=== PATIENT | female | born 1990 | race Caucasian/White ===

== ENCOUNTER 2016-07-23 13:21 | Emergency (ER) | payer OTHER ==
[2016-07-23] MEDS ORDERED: ONDANSETRON 4 MG ORAL DISINTEGRATING TAB (S0181) As Ordered ONE (15:10)
[2016-07-23 15:44] LABS: BASO % 0.2 % (0.0-1.0); EOS % 0.4 % (0.0-3.0); LARGE UNSTAINED CELL # 0.1 K/mm3 (0.0-0.4); LARGE UNSTAINED CELL % 1.1 % (0.0-4.0); LYMPH # 0.5 K/mm3 (1.5-6.5); LYMPH % 5.7 % (24.0-44.0); MEAN CORPUSCULAR HEMOGLOBIN 30.7 pg (27.0-33.0); MEAN CORPUSCULAR HGB CONC 33.8 g/dl (32.0-36.5); MEAN CORPUSCULAR VOLUME 90.8 fl (80.0-96.0); MONO # 0.2 K/mm3 (0.0-0.8); MONO % 2.7 % (0.0-5.0); NEUTROPHILS # 7.5 K/mm3 (1.8-7.7); NEUTROPHILS % 89.9 % (36.0-66.0); PLATELET COUNT, AUTOMATED 210 k/mm3 (150-450); RED CELL DISTRIBUTION WIDTH 12.1 % (11.5-14.5); WHITE BLOOD COUNT 8.4 K/mm3 (4.0-10.0)
--- NOTE | 2016-07-23 15:51 | REP ---
Obstetric ultrasonography, emergency room request for suspected premature interim membranes, amniotic fluid volume assessment: There is a single intrauterine gestation in a vertex presentation. The placenta is posterior. There is no placenta previa. The heart rate is 158 beats per minute. The cervix 3.0 cm length. Subjectively the amniotic fluid volume is normal. The amniotic fluid index is 11.0 (9.7 - 22.1). No additional ultrasound evaluation is requested or performed at this time. Signed by Bruno Hansen MD 07/23/2016 03:42 P
[2016-07-23 15:54] LABS: ALBUMIN 2.8 GM/DL (3.2-5.2); ALBUMIN/GLOBULIN RATIO 0.93 (1.00-1.93); ALKALINE PHOSPHATASE 57 U/L (45-117); ALT/SGPT 41 U/L (12-78); ANION GAP 8 MEQ/L (8-16); AST/SGOT 31 U/L (15-37); BILIRUBIN,TOTAL 0.6 MG/DL (0.2-1.0); BLOOD UREA NITROGEN 10 MG/DL (7-18); CARBON DIOXIDE LEVEL 27 MEQ/L (21-32); CHLORIDE LEVEL 104 MEQ/L (98-107); CREATININE FOR GFR 0.49 MG/DL (0.55-1.02); GLOMERULAR FILTRATION RATE > 60.0 (>60); GLUCOSE, FASTING 81 MG/DL (70-105); POTASSIUM SERUM 3.9 MEQ/L (3.5-5.1); SODIUM LEVEL 139 MEQ/L (136-145); TOTAL PROTEIN 5.8 GM/DL (6.4-8.2)
--- NOTE | 2016-07-23 16:32 | EDDOCDS ---
Physician Documentation [facility] Name: Beryl Haney Age: 26 yrs Sex: Female : 1990 Arrival Date: 07/23/2016 Time: 13:21 Bed I4 / M4 Private MD: Luisa Johnson NP Disposition: 07/23/16 16:00 Discharged to Home/Self Care. Impression: Nausea and vomiting, Diarrhea, unspecified. - Condition is Stable. - Discharge Instructions: Nausea and Vomiting, [id number], Diarrhea, [id number]. - Prescriptions for Reglan 10 mg Oral Tablet - take 1 tablet by ORAL route every 6 hours take 30 minutes before meals and at bedtime; 20 tablet. - Medication Reconciliation, Work Release Form - 1 day, Local Pharmacy Hours form. - Follow up: Traci Calhoun MD; When: Call to arrange an appointment; Reason: Further diagnostic work-up, Recheck today's complaints, Continuance of care. - Problem is new. - Symptoms are unchanged. Historical: - Allergies: No known drug Allergies; - Home Meds: 1. Vitamin Oral tab 1 tab nightly (Last dose: 07/22/2016) 2. levothyroxine 25 mcg Oral tab 1 tab nightly (Last dose: 07/22/2016) 3. Sertraline 50 mg nightly (Last dose: 07/22/2016) - PMHx: Hypothyroidism; Anxiety; - PSHx: none; - Social history: Smoking status: Patient states was never smoker of tobacco. No barriers to communication noted, The patient speaks fluent Israeli. - Family history: Not pertinent. - : The pt / caregiver states he / she is not on anticoagulants. Home medication list is obtained from the patient. - Exposure Risk Screening:: None identified. 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 2 in. (157.48 cm) (R); Pain 6/10; 16:04 BP 98 / 55; Pulse 96; Resp 18; Temp 98.8(TE); Pulse Ox 98% on R/A; Pain 0/10; nb2 13:23 Body Mass Index 31.09 (77.11 kg, 157.48 cm) gr2 16:04 RN notified of BP nb2 MDM: 15:08 Ondansetron ODT Oral Disintegrating Tablet 4 mg PO once ordered. btw 15:10 IV Saline Lock ordered. btw 15:10 NS 0.9% 1000 ml IV at bolus once ordered. btw 15:11 Set up pelvic ordered. btw 15:16 Heart Tones ordered. btw 15:18 Obs. Limited, GABRIEL US Ordered. EDMS 15:19 CBC with Diff Ordered. EDMS 15:19 Complete Comphrensive Metabolic Ordered. EDMS 15:55 Financial registration complete. [facility] 15:55 [facility] Payment Agreement was scanned into [employer] and attached to record. gjb 15:59 CBC with Diff Reviewed. btw 15:59 Complete Comphrensive Metabolic Reviewed. btw Administered Medications: 15:12 Drug: Ondansetron ODT 4 mg [ondansetron 4 mg disintegrating tablet (1 tabs)] Route: PO; dsf 15:25 Drug: NS 0.9% 1000 ml [sodium chloride 0.9 % intravenous solution] Route: IV; Rate: kr3 bolus; Site: right antecubital; Signatures: Dispatcher [employer] EDMS Rosa Cardozo RN RN kpj Robie, KathleenRN RN rob3 Kim BirdRN RN rs3 Hollis Shen PA PA btw Alexandra Mora Desiree RN dsf The chart was reviewed and I authenticate all verbal orders and agree with the evaluation and treatment provided.Corrections: (The following items were deleted from the chart) 15:18 15:09 US OBS SINGEL GEST+US ordered. EDMS EDMS Attachments: 15:55 [facility] Payment Agreement [facility] MTDD
--- NOTE | 2016-07-23 16:32 | EDDOCDS ---
Nurse's Notes [facility] Name: Beryl Haney Age: 26 yrs Sex: Female : 1990 Arrival Date: 07/23/2016 Time: 13:21 Bed I4 / M4 Private MD: Luisa Johnson NP Diagnosis: Nausea and vomiting;Diarrhea, unspecified Presentation: 07/23 13:39 Presenting complaint: Patient states: 6 months , nausea vomiting and diarrhea [facility] since 0200. Adult Sepsis Screening: The patient does not have new or worsening altered mentation. Patient's respiratory rate is less than 22. Systolic blood pressure is greater than 100. Patient has a qSOFA score of 0- Negative Sepsis Screen. Suicide/Homicide risk assessment- the patient denies having any suicidal and/or homicidal ideations and does not present with any other emotional, behavioral or mental health complaints. Status: Patient is not a client service executive or dependent. Transition of care: patient was not received from another setting of care. 13:39 Acuity: JUSTIN Level 3 [facility] 13:39 Method Of Arrival: Walkin/Carried/Asstd [facility] Triage Assessment: 13:41 General: Appears uncomfortable, Behavior is appropriate for age, pleasant. Pain: [facility] Location: body aches Pain currently is 5 out of 10 on a pain scale. Pt Declines HIV testing. Neurological: Level of Consciousness is awake, alert, Oriented to person, place, time. EENT: Oral mucosa is dry. Respiratory: Airway is patent Respiratory effort is even, unlabored, Respiratory pattern is regular, symmetrical. GI: Reports diarrhea, nausea, vomiting. : Denies cramping vaginal bleeding. Derm: Skin is dry, Skin is pale, pink, Skin temperature is warm. 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 Vitamin Oral tab 1 tab nightly (Last dose: 07/22/2016) 2. levothyroxine 25 mcg Oral tab 1 tab nightly (Last dose: 07/22/2016) 3. Sertraline 50 mg nightly (Last dose: 07/22/2016) - PMHx: Hypothyroidism; Anxiety; - PSHx: none; - Social history: Smoking status: Patient states was never smoker of tobacco. No barriers to communication noted, The patient speaks fluent Italian. - Family history: Not pertinent. - : The pt / caregiver states he / she is not on anticoagulants. Home medication list is obtained from the patient. - Exposure Risk Screening:: None identified. Screenin:27 Screening information is obtained from the patient. Fall risk: No risks identified. kr3 Assistance ADL's: requires no assistance with activities of daily living. Abuse/DV Screen: The patient / caregiver reports he/she is: not in a situation that causes fear, pain or injury. Nutritional screening: No deficits noted. Advance Directives: Currently, there is no health care proxy. home support is adequate. Assessment: 15:26 General: Appears in no apparent distress, comfortable, Behavior is appropriate for age, kr3 cooperative. Pain: Location: all over body Pain currently is 6 out of 10 on a pain scale. GI: Bowel sounds present X 4 quads. Abd is soft and non tender X 4 quads. Reports diarrhea, nausea, vomiting. Derm: Skin is normal. Vital Signs: 13:23 BP 108 / 65; Pulse 119; Resp 18 S; Temp 99.0(O); Pulse Ox 98% on R/A; Weight 77.11 kg gr2 (R); Height 5 ft. 2 in. (157.48 cm) (R); Pain 6/10; 16:04 BP 98 / 55; Pulse 96; Resp 18; Temp 98.8(TE); Pulse Ox 98% on R/A; Pain 0/10; nb2 13:23 Body Mass Index 31.09 (77.11 kg, 157.48 cm) gr2 16:04 RN notified of BP nb2 Vitals: 13:23 Log In Time: July 23, 2016 at 13:23. gr2 15:45 Heart Tones 186BPM. kr3 ED Course: 13:22 Patient visited by Jhonatan Arreola. gr2 13:22 Patient moved to Waiting gr2 13:23 Luisa Johnson is Private Physician. gr2 13:26 Patient visited by Jhonatan Arreola. gr2 13:26 Patient moved to Pre RCE gr2 13:40 Triage Initiated kp 14:21 Patient moved to Triage 2 dsf 14:50 Hollis Shen [facility] is [facility]. btw 14:50 Lizet Fernandez MD is Attending Physician. btw 14:50 Patient visited by Hollis Shen PA. btw 15:11 Patient moved to I4 / M4 dwg 15:25 Complete Comphrensive Metabolic Sent. kr3 15:25 CBC with Diff Sent. kr3 15:26 Inserted saline lock: 20 gauge in right antecubital area and blood collected. The kr3 patient tolerated the procedure well. 15:27 The patient / caregiver is instructed regarding the plan of care and ED course. kr3 Accompanied by Family Member, Patient has correct armband on for positive identification. Placed in gown. Bed in low position. Call light in reach. Side rails up X 1. 15:27 Warm blanket given. kr3 15:28 Patient visited by Avelina Gutierrez RN. kr3 15:28 Patient moved to Ultrasound kr3 15:35 Patient moved to I4 / M4 kr3 15:55 [facility] Payment Agreement was scanned into [employer] and attached to record. gjb 15:59 Traci Cahloun MD is Referral Physician. btw 16:04 Patient visited by Beryl Lorenzo. nb2 16:29 Discontinued lock bleeding controlled, pressure dressing applied, No redness/swelling rs3 at site. No procedures done that require assistance. Administered Medications: 15:12 Drug: Ondansetron ODT 4 mg [ondansetron 4 mg disintegrating tablet (1 tabs)] Route: PO; dsf 15:25 Drug: NS 0.9% 1000 ml [sodium chloride 0.9 % intravenous solution] Route: IV; Rate: kr3 bolus; Site: right antecubital; Order Results: Lab Order: CBC with Diff; SPEC'M 07/23/16 15:24 Test: WHITE BLOOD COUNT; Value: 8.4; Range: 4.0-10.0; Units: K/mm3; Status: F Test: RED BLOOD COUNT; Value: 4.20; Range: 4.00-5.40; Units: M/mm3; Status: F Test: HEMOGLOBIN; Value: 12.9; Range: 12.0-16.0; Units: g/dl; Status: F Test: HEMATOCRIT; Value: 38.2; Range: 36.0-47.0; Units: %; Status: F Test: MEAN CORPUSCULAR VOLUME; Value: 90.8; Range: 80.0-96.0; Units: fl; Status: F Test: MEAN CORPUSCULAR HEMOGLOBIN; Value: 30.7; Range: 27.0-33.0; Units: pg; Status: F Test: MEAN CORPUSCULAR HGB CONC; Value: 33.8; Range: 32.0-36.5; Units: g/dl; Status: F Test: RED CELL DISTRIBUTION WIDTH; Value: 12.1; Range: 11.5-14.5; Units: %; Status: F Test: PLATELET COUNT, AUTOMATED; Value: 210; Range: 150-450; Units: k/mm3; Status: F Test: NEUTROPHILS %; Value: 89.9; Range: 36.0-66.0; Abnormal: Above high normal; Units: %; Status: F Test: LYMPH %; Value: 5.7; Range: 24.0-44.0; Abnormal: Below low normal; Units: %; Status: F Test: MONO %; Value: 2.7; Range: 0.0-5.0; Units: %; Status: F Test: EOS %; Value: 0.4; Range: 0.0-3.0; Units: %; Status: F Test: BASO %; Value: 0.2; Range: 0.0-1.0; Units: %; Status: F Test: LARGE UNSTAINED CELL %; Value: 1.1; Range: 0.0-4.0; Units: %; Status: F Test: NEUTROPHILS #; Value: 7.5; Range: 1.8-7.7; Units: K/mm3; Status: F Test: LYMPH #; Value: 0.5; Range: 1.5-6.5; Abnormal: Below low normal; Units: K/mm3; Status: F Test: MONO #; Value: 0.2; Range: 0.0-0.8; Units: K/mm3; Status: F Test: EOS #; Value: 0.0; Range: 0.0-0.50; Units: K/mm3; Status: F Test: BASO #; Value: 0.0; Range: 0.0-0.2; Units: K/mm3; Status: F Test: LARGE UNSTAINED CELL #; Value: 0.1; Range: 0.0-0.4; Units: K/mm3; Status: F Lab Order: Complete Comphrensive Metabolic; SPEC'M 07/23/16 15:24 Test: GLUCOSE, FASTING; Value: 81; Range: 70-105; Units: MG/DL; Status: F Test: BLOOD UREA NITROGEN; Value: 10; Range: 7-18; Units: MG/DL; Status: F Test: CREATININE FOR GFR; Value: 0.49; Range: 0.55-1.02; Abnormal: Below low normal; Units: MG/DL; Status: F Test: GLOMERULAR FILTRATION RATE; Value: > 60.0; Range: >60; Status: F Test: SODIUM LEVEL; Value: 139; Range: 136-145; Units: MEQ/L; Status: F Test: POTASSIUM SERUM; Value: 3.9; Range: 3.5-5.1; Units: MEQ/L; Status: F Test: CHLORIDE LEVEL; Value: 104; Range: 98-107; Units: MEQ/L; Status: F Test: CARBON DIOXIDE LEVEL; Value: 27; Range: 21-32; Units: MEQ/L; Status: F Test: ANION GAP; Value: 8; Range: 8-16; Units: MEQ/L; Status: F Test: CALCIUM LEVEL; Value: 8.0; Range: 8.5-10.1; Abnormal: Below low normal; Units: MG/DL; Status: F Test: AST/SGOT; Value: 31; Range: 15-37; Units: U/L; Status: F Test: ALT/SGPT; Value: 41; Range: 12-78; Units: U/L; Status: F Test: ALKALINE PHOSPHATASE; Value: 57; Range: 45-117; Units: U/L; Status: F Test: BILIRUBIN,TOTAL; Value: 0.6; Range: 0.2-1.0; Units: MG/DL; Status: F Test: TOTAL PROTEIN; Value: 5.8; Range: 6.4-8.2; Abnormal: Below low normal; Units: GM/DL; Status: F Test: ALBUMIN; Value: 2.8; Range: 3.2-5.2; Abnormal: Below low normal; Units: GM/DL; Status: F Test: ALBUMIN/GLOBULIN RATIO; Value: 0.93; Range: 1.00-1.93; Abnormal: Below low normal; Status: F Test Note: ; Units are mL/min/1.73 m2 Chronic Kidney Disease Staging per NKF: Stage I & II GFR >=60 Normal to Mildly Decreased Stage III GFR 30-59 Moderately Decreased Stage IV GFR 15-29 Severely Decreased Stage V GFR <15 Very Little GFR Left ESRD GFR <15 on AUTOMOTIVE ELECTRICIAN HELPER Outcome: 15:45 Ultrasound Study completed. kr3 16:00 Discharge ordered by Provider. btw 16:30 Discharge Assessment: patient administered narcotics - no. The following High Risk rs3 Discharge criteria are identified: None. Discharged to Labor and Delivery. Condition: stable. Discharge instructions given to patient, Instructed on discharge instructions, follow up and referral plans. medication usage, Demonstrated understanding of instructions, medications, Pt was receptive of discharge instructions/ teaching. Prescriptions given X 1. Property :Personal belongings accompany Pt. 16:30 Patient left the ED. rs3 Signatures: Bruno Glass, RN RN dwRosa Alcazar RN RN kpj Avelina Gutierrez,RN RN kr3 Kim BirdRN RN rs3 Hollis Shen PA PA btw Fuller, Desiree,RN RN anabelf Jhonatan Arreola2 Alexanrda Mora Nicole nb2 MTDD
--- NOTE | 2016-07-25 17:32 | EDDOCDS ---
Nurse's Notes [facility] Name: Beryl Haney Age: 26 yrs Sex: Female : 1990 Arrival Date: 07/23/2016 Time: 13:21 Bed I4 / M4 Private MD: Luisa Johnson NP Diagnosis: Nausea and vomiting;Diarrhea, unspecified Presentation: 07/23 13:39 Presenting complaint: Patient states: 6 months , nausea vomiting and diarrhea [facility] since 0200. Adult Sepsis Screening: The patient does not have new or worsening altered mentation. Patient's respiratory rate is less than 22. Systolic blood pressure is greater than 100. Patient has a qSOFA score of 0- Negative Sepsis Screen. Suicide/Homicide risk assessment- the patient denies having any suicidal and/or homicidal ideations and does not present with any other emotional, behavioral or mental health complaints. Status: Patient is not a manager service desk or dependent. Transition of care: patient was not received from another setting of care. 13:39 Acuity: JUSTIN Level 3 [facility] 13:39 Method Of Arrival: Walkin/Carried/Asstd [facility] Triage Assessment: 13:41 General: Appears uncomfortable, Behavior is appropriate for age, pleasant. Pain: [facility] Location: body aches Pain currently is 5 out of 10 on a pain scale. Pt Declines HIV testing. Neurological: Level of Consciousness is awake, alert, Oriented to person, place, time. EENT: Oral mucosa is dry. Respiratory: Airway is patent Respiratory effort is even, unlabored, Respiratory pattern is regular, symmetrical. GI: Reports diarrhea, nausea, vomiting. : Denies cramping vaginal bleeding. Derm: Skin is dry, Skin is pale, pink, Skin temperature is warm. 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 Vitamin Oral tab 1 tab nightly (Last dose: 07/22/2016) 2. levothyroxine 25 mcg Oral tab 1 tab nightly (Last dose: 07/22/2016) 3. Sertraline 50 mg nightly (Last dose: 07/22/2016) - PMHx: Hypothyroidism; Anxiety; - PSHx: none; - Social history: Smoking status: Patient states was never smoker of tobacco. No barriers to communication noted, The patient speaks fluent Austrian. - Family history: Not pertinent. - : The pt / caregiver states he / she is not on anticoagulants. Home medication list is obtained from the patient. - Exposure Risk Screening:: None identified. Screenin:27 Screening information is obtained from the patient. Fall risk: No risks identified. kr3 Assistance ADL's: requires no assistance with activities of daily living. Abuse/DV Screen: The patient / caregiver reports he/she is: not in a situation that causes fear, pain or injury. Nutritional screening: No deficits noted. Advance Directives: Currently, there is no health care proxy. home support is adequate. Assessment: 15:26 General: Appears in no apparent distress, comfortable, Behavior is appropriate for age, kr3 cooperative. Pain: Location: all over body Pain currently is 6 out of 10 on a pain scale. GI: Bowel sounds present X 4 quads. Abd is soft and non tender X 4 quads. Reports diarrhea, nausea, vomiting. Derm: Skin is normal. Vital Signs: 13:23 BP 108 / 65; Pulse 119; Resp 18 S; Temp 99.0(O); Pulse Ox 98% on R/A; Weight 77.11 kg gr2 (R); Height 5 ft. 2 in. (157.48 cm) (R); Pain 6/10; 16:04 BP 98 / 55; Pulse 96; Resp 18; Temp 98.8(TE); Pulse Ox 98% on R/A; Pain 0/10; nb2 13:23 Body Mass Index 31.09 (77.11 kg, 157.48 cm) gr2 16:04 RN notified of BP nb2 Vitals: 13:23 Log In Time: July 23, 2016 at 13:23. gr2 15:45 Heart Tones 186BPM. kr3 ED Course: 13:22 Patient visited by Jhonatan Arreola. gr2 13:22 Patient moved to Waiting gr2 13:23 Luisa Johnson is Private Physician. gr2 13:26 Patient visited by Jhonatan Arreola. gr2 13:26 Patient moved to Pre RCE gr2 13:40 Triage Initiated kp 14:21 Patient moved to Triage 2 dsf 14:50 Hollis Shen PA is PHCP. btw 14:50 Lizet Fernandez MD is Attending Physician. btw 14:50 Patient visited by Hollis Shen PA. btw 15:11 Patient moved to I4 / M4 dwg 15:25 Complete Comphrensive Metabolic Sent. kr3 15:25 CBC with Diff Sent. kr3 15:26 Inserted saline lock: 20 gauge in right antecubital area and blood collected. The kr3 patient tolerated the procedure well. 15:27 The patient / caregiver is instructed regarding the plan of care and ED course. kr3 Accompanied by Family Member, Patient has correct armband on for positive identification. Placed in gown. Bed in low position. Call light in reach. Side rails up X 1. 15:27 Warm blanket given. kr3 15:28 Patient visited by Avelina Gutierrez RN. kr3 15:28 Patient moved to Ultrasound kr3 15:35 Patient moved to I4 / M4 kr3 15:55 [facility] Payment Agreement was scanned into [employer] and attached to record. gjb 15:59 Traci Calhoun MD is Referral Physician. btw 16:04 Patient visited by eBryl Lorenzo. nb2 16:29 Discontinued lock bleeding controlled, pressure dressing applied, No redness/swelling rs3 at site. No procedures done that require assistance. 16:36 Obs. Limited, GABRIEL US Returned. EDMS 07/24 09:56 T-Sheet-- Draft Copy was scanned into [employer] and attached to record. gb Administered Medications: 07/23 15:12 Drug: Ondansetron ODT 4 mg [ondansetron 4 mg disintegrating tablet (1 tabs)] Route: PO; dsf 15:25 Drug: NS 0.9% 1000 ml [sodium chloride 0.9 % intravenous solution] Route: IV; Rate: kr3 bolus; Site: right antecubital; Order Results: Lab Order: CBC with Diff; SPEC'M 07/23/16 15:24 Test: WHITE BLOOD COUNT; Value: 8.4; Range: 4.0-10.0; Units: K/mm3; Status: F Test: RED BLOOD COUNT; Value: 4.20; Range: 4.00-5.40; Units: M/mm3; Status: F Test: HEMOGLOBIN; Value: 12.9; Range: 12.0-16.0; Units: g/dl; Status: F Test: HEMATOCRIT; Value: 38.2; Range: 36.0-47.0; Units: %; Status: F Test: MEAN CORPUSCULAR VOLUME; Value: 90.8; Range: 80.0-96.0; Units: fl; Status: F Test: MEAN CORPUSCULAR HEMOGLOBIN; Value: 30.7; Range: 27.0-33.0; Units: pg; Status: F Test: MEAN CORPUSCULAR HGB CONC; Value: 33.8; Range: 32.0-36.5; Units: g/dl; Status: F Test: RED CELL DISTRIBUTION WIDTH; Value: 12.1; Range: 11.5-14.5; Units: %; Status: F Test: PLATELET COUNT, AUTOMATED; Value: 210; Range: 150-450; Units: k/mm3; Status: F Test: NEUTROPHILS %; Value: 89.9; Range: 36.0-66.0; Abnormal: Above high normal; Units: %; Status: F Test: LYMPH %; Value: 5.7; Range: 24.0-44.0; Abnormal: Below low normal; Units: %; Status: F Test: MONO %; Value: 2.7; Range: 0.0-5.0; Units: %; Status: F Test: EOS %; Value: 0.4; Range: 0.0-3.0; Units: %; Status: F Test: BASO %; Value: 0.2; Range: 0.0-1.0; Units: %; Status: F Test: LARGE UNSTAINED CELL %; Value: 1.1; Range: 0.0-4.0; Units: %; Status: F Test: NEUTROPHILS #; Value: 7.5; Range: 1.8-7.7; Units: K/mm3; Status: F Test: LYMPH #; Value: 0.5; Range: 1.5-6.5; Abnormal: Below low normal; Units: K/mm3; Status: F Test: MONO #; Value: 0.2; Range: 0.0-0.8; Units: K/mm3; Status: F Test: EOS #; Value: 0.0; Range: 0.0-0.50; Units: K/mm3; Status: F Test: BASO #; Value: 0.0; Range: 0.0-0.2; Units: K/mm3; Status: F Test: LARGE UNSTAINED CELL #; Value: 0.1; Range: 0.0-0.4; Units: K/mm3; Status: F Lab Order: Complete Comphrensive Metabolic; SPEC'M 07/23/16 15:24 Test: GLUCOSE, FASTING; Value: 81; Range: 70-105; Units: MG/DL; Status: F Test: BLOOD UREA NITROGEN; Value: 10; Range: 7-18; Units: MG/DL; Status: F Test: CREATININE FOR GFR; Value: 0.49; Range: 0.55-1.02; Abnormal: Below low normal; Units: MG/DL; Status: F Test: GLOMERULAR FILTRATION RATE; Value: > 60.0; Range: >60; Status: F Test: SODIUM LEVEL; Value: 139; Range: 136-145; Units: MEQ/L; Status: F Test: POTASSIUM SERUM; Value: 3.9; Range: 3.5-5.1; Units: MEQ/L; Status: F Test: CHLORIDE LEVEL; Value: 104; Range: 98-107; Units: MEQ/L; Status: F Test: CARBON DIOXIDE LEVEL; Value: 27; Range: 21-32; Units: MEQ/L; Status: F Test: ANION GAP; Value: 8; Range: 8-16; Units: MEQ/L; Status: F Test: CALCIUM LEVEL; Value: 8.0; Range: 8.5-10.1; Abnormal: Below low normal; Units: MG/DL; Status: F Test: AST/SGOT; Value: 31; Range: 15-37; Units: U/L; Status: F Test: ALT/SGPT; Value: 41; Range: 12-78; Units: U/L; Status: F Test: ALKALINE PHOSPHATASE; Value: 57; Range: 45-117; Units: U/L; Status: F Test: BILIRUBIN,TOTAL; Value: 0.6; Range: 0.2-1.0; Units: MG/DL; Status: F Test: TOTAL PROTEIN; Value: 5.8; Range: 6.4-8.2; Abnormal: Below low normal; Units: GM/DL; Status: F Test: ALBUMIN; Value: 2.8; Range: 3.2-5.2; Abnormal: Below low normal; Units: GM/DL; Status: F Test: ALBUMIN/GLOBULIN RATIO; Value: 0.93; Range: 1.00-1.93; Abnormal: Below low normal; Status: F Test Note: ; Units are mL/min/1.73 m2 Chronic Kidney Disease Staging per NKF: Stage I & II GFR >=60 Normal to Mildly Decreased Stage III GFR 30-59 Moderately Decreased Stage IV GFR 15-29 Severely Decreased Stage V GFR <15 Very Little GFR Left ESRD GFR <15 on SOLAR SITE ASSESSMENT SPECIALIST Radiology Order: Obs. Limited, GABRIEL US Test: Obs. Limited, GABRIEL US REASON FOR EXAMINATION: ? PPROM; Obstetric ultrasonography, emergency room request for suspected premature interim; membranes, amniotic fluid volume assessment:; ; There is a single intrauterine gestation in a vertex presentation. The placenta; is posterior. There is no placenta previa.; ; The heart rate is 158 beats per minute. The cervix 3.0 cm length.; ; Subjectively the amniotic fluid volume is normal.; ; The amniotic fluid index is 11.0 (9.7 - 22.1).; ; No additional ultrasound evaluation is requested or performed at this time.; ; ; Signed by; Bruno Hansen MD 07/23/2016 03:42 P; Outcome: 15:45 Ultrasound Study completed. kr3 16:00 Discharge ordered by Provider. btw 16:30 Discharge Assessment: patient administered narcotics - no. The following High Risk rs3 Discharge criteria are identified: None. Discharged to Labor and Delivery. Condition: stable. Discharge instructions given to patient, Instructed on discharge instructions, follow up and referral plans. medication usage, Demonstrated understanding of instructions, medications, Pt was receptive of discharge instructions/ teaching. Prescriptions given X 1. Property :Personal belongings accompany Pt. 16:30 Patient left the ED. rs3 Signatures: Dispatcher [employer] EDMS Bruno Glass RN RN dwg Jobson, Karen, RN RN kpj Barnhardt, Gloria, Avelina Fish RN RN kr3 Kim Bird RN RN rs3 Hollis Shen PA PA btw Fuller, Desiree,RN RN Jhonatan Colon2 Alexandra Mora Nicole nb2 Chart Complete MTDD
--- NOTE | 2016-07-25 17:32 | EDDOCDS ---
Physician Documentation [facility] Name: Beryl Haney Age: 26 yrs Sex: Female : 1990 Arrival Date: 07/23/2016 Time: 13:21 Bed I4 / M4 Private MD: Luisa Johnson NP Disposition: 07/23/16 16:00 Discharged to Home/Self Care. Impression: Nausea and vomiting, Diarrhea, unspecified. - Condition is Stable. - Discharge Instructions: Nausea and Vomiting, [id number], Diarrhea, Owlj-um-Xabv. - Prescriptions for Reglan 10 mg Oral Tablet - take 1 tablet by ORAL route every 6 hours take 30 minutes before meals and at bedtime; 20 tablet. - Medication Reconciliation, Work Release Form - 1 day, Local Pharmacy Hours form. - Follow up: Traci Calhoun MD; When: Call to arrange an appointment; Reason: Further diagnostic work-up, Recheck today's complaints, Continuance of care. - Problem is new. - Symptoms are unchanged. Historical: - Allergies: No known drug Allergies; - Home Meds: 1. Vitamin Oral tab 1 tab nightly (Last dose: 07/22/2016) 2. levothyroxine 25 mcg Oral tab 1 tab nightly (Last dose: 07/22/2016) 3. Sertraline 50 mg nightly (Last dose: 07/22/2016) - PMHx: Hypothyroidism; Anxiety; - PSHx: none; - Social history: Smoking status: Patient states was never smoker of tobacco. No barriers to communication noted, The patient speaks fluent Luxembourger. - Family history: Not pertinent. - : The pt / caregiver states he / she is not on anticoagulants. Home medication list is obtained from the patient. - Exposure Risk Screening:: None identified. 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 2 in. (157.48 cm) (R); Pain 6/10; 16:04 BP 98 / 55; Pulse 96; Resp 18; Temp 98.8(TE); Pulse Ox 98% on R/A; Pain 0/10; nb2 13:23 Body Mass Index 31.09 (77.11 kg, 157.48 cm) gr2 16:04 RN notified of BP nb2 MDM: 15:08 Ondansetron ODT Oral Disintegrating Tablet 4 mg PO once ordered. btw 15:10 IV Saline Lock ordered. btw 15:10 NS 0.9% 1000 ml IV at bolus once ordered. btw 15:11 Set up pelvic ordered. btw 15:16 Heart Tones ordered. btw 15:18 Obs. Limited, GABRIEL US Ordered. EDMS 15:19 CBC with Diff Ordered. EDMS 15:19 Complete Comphrensive Metabolic Ordered. EDMS 15:55 Financial registration complete. [facility] 15:55 [facility] Payment Agreement was scanned into [employer] and attached to record. gjb 15:59 CBC with Diff Reviewed. btw 15:59 Complete Comphrensive Metabolic Reviewed. [facility] 07/24 09:56 T-Sheet-- Draft Copy was scanned into [employer] and attached to record. gb Administered Medications: 07/23 15:12 Drug: Ondansetron ODT 4 mg [ondansetron 4 mg disintegrating tablet (1 tabs)] Route: PO; dsf 15:25 Drug: NS 0.9% 1000 ml [sodium chloride 0.9 % intravenous solution] Route: IV; Rate: kr3 bolus; Site: right antecubital; Signatures: Dispatcher [employer] EDME Rosa Cardozo RN RN Ashlyn Piedra, Reg Reg Avelina GutierrezRN RN kr3 Kim BirdRN RN rs3 Hollis Shen PA PA btw Alexandra Mora [facility] Yasmine Herndon RN dsf The chart was reviewed and I authenticate all verbal orders and agree with the evaluation and treatment provided.Corrections: (The following items were deleted from the chart) 15:18 15:09 US OBS SINGEL GEST+US ordered. EDMS EDMS Attachments: 15:55 [facility] Payment Agreement [facility] 07/24 09:56 T-Sheet-- Draft Copy gb Chart Complete MTDD
--- NOTE | 2016-07-25 17:32 | EDDOCDS ---
Physician Documentation [facility] Name: Beryl Haney Age: 26 yrs Sex: Female : 1990 Arrival Date: 07/23/2016 Time: 13:21 Bed I4 / M4 Private MD: Luisa Johnson NP Disposition: 07/23/16 16:00 Discharged to Home/Self Care. Impression: Nausea and vomiting, Diarrhea, unspecified. - Condition is Stable. - Discharge Instructions: Nausea and Vomiting, Nyhf-rn-Ixiw, Diarrhea, Xwkh-qs-Yjkj. - Prescriptions for Reglan 10 mg Oral Tablet - take 1 tablet by ORAL route every 6 hours take 30 minutes before meals and at bedtime; 20 tablet. - Medication Reconciliation, Work Release Form - 1 day, Local Pharmacy Hours form. - Follow up: Traci Calhoun MD; When: Call to arrange an appointment; Reason: Further diagnostic work-up, Recheck today's complaints, Continuance of care. - Problem is new. - Symptoms are unchanged. Historical: - Allergies: No known drug Allergies; - Home Meds: 1. Vitamin Oral tab 1 tab nightly (Last dose: 07/22/2016) 2. levothyroxine 25 mcg Oral tab 1 tab nightly (Last dose: 07/22/2016) 3. Sertraline 50 mg nightly (Last dose: 07/22/2016) - PMHx: Hypothyroidism; Anxiety; - PSHx: none; - Social history: Smoking status: Patient states was never smoker of tobacco. No barriers to communication noted, The patient speaks fluent Thai. - Family history: Not pertinent. - : The pt / caregiver states he / she is not on anticoagulants. Home medication list is obtained from the patient. - Exposure Risk Screening:: None identified. 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 2 in. (157.48 cm) (R); Pain 6/10; 16:04 BP 98 / 55; Pulse 96; Resp 18; Temp 98.8(TE); Pulse Ox 98% on R/A; Pain 0/10; nb2 13:23 Body Mass Index 31.09 (77.11 kg, 157.48 cm) gr2 16:04 RN notified of BP nb2 MDM: 15:08 Ondansetron ODT Oral Disintegrating Tablet 4 mg PO once ordered. btw 15:10 IV Saline Lock ordered. btw 15:10 NS 0.9% 1000 ml IV at bolus once ordered. btw 15:11 Set up pelvic ordered. btw 15:16 Heart Tones ordered. btw 15:18 Obs. Limited, GABRIEL US Ordered. EDMS 15:19 CBC with Diff Ordered. EDMS 15:19 Complete Comphrensive Metabolic Ordered. EDMS 15:55 Financial registration complete. [facility] 15:55 [facility] Payment Agreement was scanned into [employer] and attached to record. gjb 15:59 CBC with Diff Reviewed. btw 15:59 Complete Comphrensive Metabolic Reviewed. [facility] 07/24 09:56 T-Sheet-- Draft Copy was scanned into [employer] and attached to record. gb Administered Medications: 07/23 15:12 Drug: Ondansetron ODT 4 mg [ondansetron 4 mg disintegrating tablet (1 tabs)] Route: PO; dsf 15:25 Drug: NS 0.9% 1000 ml [sodium chloride 0.9 % intravenous solution] Route: IV; Rate: kr3 bolus; Site: right antecubital; Signatures: Dispatcher [employer] EDHI Rosa Cardozo RN RN Ashlyn Piedra, Reg Reg Avelina GutierrezRN RN kr3 Kim BirdRN RN rs3 Hollis Shen PA PA btw Alexandra Mora [facility] Yasmine Herndon RN dsf The chart was reviewed and I authenticate all verbal orders and agree with the evaluation and treatment provided.Corrections: (The following items were deleted from the chart) 15:18 15:09 US OBS SINGEL GEST+US ordered. EDMS EDMS Attachments: 15:55 [facility] Payment Agreement [facility] 07/24 09:56 T-Sheet-- Draft Copy gb Chart Complete MTDD
== END 2016-07-23 16:30 | disposition home or self-care (01) ==
LOC: M ED 13:21
DX: O21.9 Vomiting of pregnancy, unspecified (principal); R19.7 Diarrhea, unspecified; Z3A.25 25 weeks gestation of pregnancy; O99.282 Endocrine, nutritional and metabolic diseases complicating pregnancy, second trimester; E07.9 Disorder of thyroid, unspecified; O99.342 Other mental disorders complicating pregnancy, second trimester; F41.9 Anxiety disorder, unspecified; Z79.899 Other long term (current) drug therapy; Z79.52 Long term (current) use of systemic steroids

== ENCOUNTER 2016-07-23 16:41 | Outpatient (CLI) | payer OTHER ==
[~2016-07-23] VITALS: Ht 157.5 cm; Wt 78.0 kg
== END 2016-07-23 17:24 | disposition home or self-care (01) ==
LOC: M LDO 16:41
PROVIDERS: ATTEND Obstetrics & Gynecology
DX: O99.89 Other specified diseases and conditions complicating pregnancy, childbirth and the puerperium (principal); K52.9 Noninfective gastroenteritis and colitis, unspecified; Z3A.25 25 weeks gestation of pregnancy

== ENCOUNTER → 2016-07-27 | Outpatient (CLI) | payer OTHER ==
--- NOTE | 2016-07-27 09:59 | REP ---
Clinical: Anatomical evaluation. Comparison: 07/23/2016 . Findings: Examination demonstrates a single live intrauterine in breech presentation. motion is identified by technologist. Placenta is noted posteriorly and grade one without evidence for placenta previa or abruption. Amniotic fluid volume is normal. Cervix measures 3.6 cm in length and appears closed. No evidence for nuchal cord. Gestational age by LMP 25 weeks 4 days with YVSE 11/05/2016 . Gestational age by current measurements 25 weeks 1 day with YVES 11/08/2016 . FHR equals 153 beats per minute. Estimated weight 853 grams ( 48th percentile). Anatomical assessment demonstrates normal structures including cranium, choroid plexus, cavum, cerebellum/posterior fossa, facial features, lungs, four-chamber heart/ventricular outflow tracts, diaphragm, stomach, cord insertion/three-vessel cord, kidneys/bladder, spine, and extremities. Impression: The fetus demonstrates appropriate interval growth. Breech presentation. Anatomical assessment is complete and normal. Signed by James Kulkarni MD 07/27/2016 09:50 A
== END ==
LOC: M SMT 08:46
PROVIDERS: ATTEND Obstetrics & Gynecology
DX: Z36 Encounter for antenatal screening of mother (principal); Z3A.25 25 weeks gestation of pregnancy

== ENCOUNTER → 2016-07-30 | Outpatient (CLI) | payer OTHER ==
[2016-07-30 17:44] LABS: FREE T4 0.95 NG/DL (0.76-1.46)
[2016-07-30 18:36] LABS: MEAN CORPUSCULAR HEMOGLOBIN 30.3 pg (27.0-33.0); MEAN CORPUSCULAR HGB CONC 33.5 g/dl (32.0-36.5); MEAN CORPUSCULAR VOLUME 90.4 fl (80.0-96.0); RED CELL DISTRIBUTION WIDTH 12.1 % (11.5-14.5); WHITE BLOOD COUNT 9.4 K/mm3 (4.0-10.0)
== END ==
LOC: M SMT 14:15
PROVIDERS: ATTEND Obstetrics & Gynecology
DX: Z36 Encounter for antenatal screening of mother (principal); Z3A.25 25 weeks gestation of pregnancy

== ENCOUNTER → 2016-10-08 | Outpatient (REF) | payer OTHER | LOC: M LAB REF 17:01 | PROVIDERS: ATTEND Obstetrics & Gynecology | DX: Z36 Encounter for antenatal screening of mother (principal); Z3A.00 Weeks of gestation of pregnancy not specified ==

== ENCOUNTER 2016-11-05 14:23 | Inpatient (IN) | payer OTHER ==
[~2016-11-05] VITALS: Ht 158.8 cm; Wt 99.1 kg
[2016-11-05] VITALS (47 sets, daily range): BP systolic 85–129; BP diastolic 47–78
[2016-11-05] MEDS ORDERED: PENICILLIN G POTASSIUM IV 5 MU in D5W MINI-BAG PLUS 100 ML IV STA (14:46)
[2016-11-05] MEDS ORDERED: LR 1,000 ML IV SCH (14:46)
[2016-11-05 15:48] LABS: MEAN CORPUSCULAR HEMOGLOBIN 31.2 pg (27.0-33.0); MEAN CORPUSCULAR HGB CONC 35.8 g/dl (32.0-36.5); MEAN CORPUSCULAR VOLUME 87.3 fl (80.0-96.0); WHITE BLOOD COUNT 10.4 K/mm3 (4.0-10.0)
--- NOTE | 2016-11-05 15:56 | HPE ---
DATE OF ADMISSION: 11/05/2016 Beryl is a 26-year-old, 4, para 1-0-2-1 at 40 and 1/7 weeks gestation with estimated date of confinement (EDC) of 11/04/2016 based on last normal menstrual period and confirmed by first trimester ultrasound. She presents to labor and delivery today after evaluation in the office for complaint of rupture of membranes. She reports that she had spontaneous rupture of membranes for a small amount of clear odorless fluid at approximately 10:00 a.m. She has continued to leak and has had mild contractions since the [facility]. She reports some scant bloody show and the fetus has been active. Her care was initiated at [facility] in the first trimester. course was complicated by anxiety and depression and currently taking Zoloft. OBSTETRICAL HISTORY: In September 2007, at 41 weeks gestation she had a spontaneous vaginal delivery of a 7 pounds 14 ounces male. In November 2012, elective termination of . In December 2013, elective termination of . OBSTETRICAL LABORATORIES: Her blood type is A positive, antibody screen negative. Rubella immune. Venereal disease research laboratory test (VDRL) nonreactive. Urine culture with no growth. Hepatitis B surface antigen negative. HIV negative. Hepatitis C antibody nonreactive. Gonorrhea and Chlamydia negative. She did decline all genetic serum screening markers. Gestational diabetic screenin. Her Group B streptococcus (GBS) is positive. PAST MEDICAL HISTORY: 1. Hypothyroidism. 2. Abnormal Pap smear. 3. Childhood Varicella. SURGERIES: Colposcopy and cryosurgery. FAMILY HISTORY: Noncontributory. SOCIAL HISTORY: She is single. The father of the baby is at bedside and supportive. She is a nonsmoker. Denies alcohol and drug use. There is no history of sexually transmitted infections. She denies history of abuse -- physical, sexual, and emotional. ALLERGIES: No known drug allergies. CURRENT MEDICATIONS: - vitamin - levothyroxine 25 mcg daily OBJECTIVE: Temperature 99.2, pulse 99, respirations 18, blood pressure is 104/63. She is alert and oriented times three. She is in no apparent discomfort. heart rate is 150 with moderate variability, positive accelerations, negative decelerations. She is amy about every 3 to 6 minutes. Sterile speculum examination was performed in the office with positive Valsalva, positive pooling, positive Nitrazine, and positive fern for clear fluid. ABDOMEN: Gravid, cephalic presentation. Estimated weight is 3700 grams. Sterile vaginal examination is 1 cm dilated, 80% effaced and -2 station. ASSESSMENT: 1. Intrauterine at 40 and 1/7 weeks, heart rate is category 1. 2. Spontaneous rupture of membranes. PLAN: Admit the patient to labor and delivery. Start IV antibiotics for GBS prophylaxis. Laboratories as ordered. Out of bed ad altagracia. Clear liquid diet. The patient, at this time, does decline an epidural for her labor coping. She desires to cope with her labor physiologically. I do anticipate continued progress. I will consider augmentation with IV Pitocin once she has been treated at the appropriate time for her positive GBS. I do anticipate a normal spontaneous vaginal delivery.
[2016-11-05] MEDS ORDERED: PRENTAB55 PO (16:25)
[2016-11-05] MEDS ORDERED: ZOLO25TA PO (16:29)
[2016-11-05] MEDS ORDERED: PENICILLIN G POTASSIUM IV 2.5 MU in D5W 100 ML IV SCH (19:45)
[2016-11-05] MEDS ORDERED: FENTANYL 2MCG/ML ROPIVACAINE 0.2% IN 0.9% NACL 200ML IVBAG As Ordered ONE (20:09)
[2016-11-05] MEDS ORDERED: REFRIGERATOR IV KEYS XX PRN (21:15)
[2016-11-05] MEDS ORDERED: ONDANSETRON 4MG/2ML VIAL (J2405) IV PRN (21:15)
[2016-11-05] MEDS ORDERED: NALOXONE INJ 0.4 MG/1 ML VIAL (J2310) IV PRN (21:15)
[2016-11-05] MEDS ORDERED: EPIDURAL COMMENT XX SCH (21:15)
[2016-11-05] MEDS ORDERED: ePHEDrine SULFATE 25 MG/5 ML(5MG/ML) SYRINGE IV PRN (21:15)
[2016-11-05] MEDS ORDERED: diphenhydrAMINE INJ 50MG/ML VIAL (J1200) IV PRN (21:15)
[2016-11-05] MEDS ORDERED: EPIDURAL/PCA KEYS XX PRN (21:15)
[2016-11-05] MEDS ORDERED: LACTATED RINGER'S 1000 ML IV PRN (21:15)
[2016-11-05] MEDS ORDERED: FENTANYL/ROPIVACAINE/NACL BAG 200 ML EPIDURAL SCH (21:15)
[2016-11-05] MEDS: SERTRALINE HCL 25 MG TABLET PO SCH (21:35)
[2016-11-05] MEDS ORDERED: OXYTOCIN DRIP 30 UNITS in APPROPRIATE DILUENT 1 EA IV SCH (22:30)
[2016-11-06 00:21] VITALS: BP 110/57
[2016-11-06] MEDS ORDERED: OXYTOCIN DRIP 30 UNITS in APPROPRIATE DILUENT 1 EA IV SCH (00:34)
[2016-11-06 00:36] VITALS: BP 105/55
[2016-11-06 00:44] LABS: CORD GAS ABE V -4.8; CORD GAS HCO3 A 23.2 MEQ/L; CORD GAS HCO3 V 20.3 MEQ/L; CORD GAS O2 SAT A 34.4 %; CORD GAS O2 SAT V 66.5 %; CORD GAS PCO2 A 66.3 mmHg; CORD GAS PCO2 V 38.3 mmHg; CORD GAS PH A 7.162 UNITS; CORD GAS PH V 7.343 UNITS; CORD GAS PO2 A 20.8 mmHg; CORD GAS PO2 V 28.1 mmHg; CORD GAS SBC A 17.4 MEQ/L; CORD GAS SBC V 19.8 MEQ/L; CORD GAS TCO2 A 25.2 MEQ/L; CORD GAS TCO2 V 21.5 MEQ/L
[2016-11-06] MEDS ORDERED: METHYLERGONOVINE MALEATE 0.2 MG TAB PO PRN (00:45)
[2016-11-06] MEDS ORDERED: ACETAMINOPHEN 500 MG TAB PO PRN (00:45)
[2016-11-06] MEDS ORDERED: RHOGAM 300 MCG (1500 IU) INJ (J2790) IM SCH (00:45)
[2016-11-06] MEDS ORDERED: IBUPROFEN 800 MG TAB PO PRN (00:45)
[2016-11-06] MEDS ORDERED: ANUSOL HC CREAM 30GM TOP PRN (00:45)
[2016-11-06] MEDS ORDERED: DIBUCAINE 1% OINTMENT 30GM TOP PRN (00:45)
[2016-11-06] MEDS ORDERED: MEASLES,MUMPS,RUBELLA VACCINE INJ (MMR-II) (90707) SC SCH (00:45)
[2016-11-06] MEDS ORDERED: DOCUSATE SODIUM 100 MG CAP PO PRN (00:45)
--- NOTE | 2016-11-06 00:49 | DN ---
DATE OF DELIVERY: 11/06/2016 Beryl is a 26-year-old 4, para 2-0-2-2 now, who was admitted to labor and delivery in active labor. She did utilize an epidural for her labor coping. She also had intravenous (IV) Pitocin to augment her labor. She reached full dilation at 2345. She pushed to a normal spontaneous vaginal delivery of a live female infant in occiput anterior (OA) position with restitution to right occiput transverse (ROT ) position at 0006. The shoulders delivered with gentle downward guidance and the corpus immediately followed. The was placed on the maternal abdomen crying and active. Mouth and nares were bulb suctioned. The cord was clamped times two and cut by the father of the baby. Cord blood and cord gases were obtained. Arterial cord gas 7.162, base excess -7.0, Venous gas 7.343, base excess -4.8. A spontaneous expulsion of an intact placenta with three-vessel cord by Carcamo mechanism was at 0016. Uterine hemostasis achieved with IV Pitocin rapid infusion and uterine fundal massage. Estimated blood loss 300 mL. Perineum and vagina were inspected, noted to have vaginal abrasion. The abrasion was bleeding, so two interrupted sutures with 3-0 Rapide were placed. female weighed 8 pounds 7 ounces, 3840 grams, scores 9 and 10. Mother is going to breastfeed her daughter and the family have named their daughter, Danna Easley. At the close of delivery, lap counts, needle counts and instrument counts were correct and verified. [facility]
[2016-11-06 00:51] VITALS: BP 102/53
[2016-11-06 02:20] VITALS: BP 102/54
[2016-11-06] MEDS: PRENATAL VITAMIN TAB PO SCH (09:09)
[2016-11-06 18:17] VITALS: BP 130/67
[2016-11-06] MEDS: SERTRALINE HCL 25 MG TABLET PO SCH (21:03)
[2016-11-07 06:06] VITALS: BP 109/59
[2016-11-07] MEDS: PRENATAL VITAMIN TAB PO SCH (07:59)
[2016-11-07] MEDS ORDERED: TYLE500T78 PO (10:09)
[2016-11-07] MEDS ORDERED: IBUP800T23 PO (10:09)
== END 2016-11-07 11:50 | disposition home or self-care (01) | DRG 560 ==
LOC: M LDI 14:23 → M OBS 11-06 02:13
PROVIDERS: ADMIT Advanced Practice Midwife; ATTEND Advanced Practice Midwife
PROC: 10E0XZZ Delivery of Products of Conception, External Approach (ICD-10-PCS; principal; 2016-11-06)
PROC: 0HQ9XZZ Repair Perineum Skin, External Approach (ICD-10-PCS; 2016-11-06)
DX: O48.0 Post-term pregnancy (principal); Z37.0 Single live birth; Z3A.40 40 weeks gestation of pregnancy; F41.9 Anxiety disorder, unspecified; F32.9 Major depressive disorder, single episode, unspecified; Z79.899 Other long term (current) drug therapy; O99.344 Other mental disorders complicating childbirth; E03.9 Hypothyroidism, unspecified; O99.284 Endocrine, nutritional and metabolic diseases complicating childbirth; O70.0 First degree perineal laceration during delivery

== ENCOUNTER → 2016-12-16 | Outpatient (REF) | payer OTHER ==
[~2016-12-16] MED LIST: IBUP1TAB7 PO; PRENTAB55 PO; TYLE500T78 PO; ZOLO25TA PO
== END ==
LOC: M LAB REF 10:33
PROVIDERS: ATTEND Physician Assistant
DX: N39.0 Urinary tract infection, site not specified (principal)

== ENCOUNTER → 2017-05-21 | Outpatient (REF) | payer OTHER | LOC: M LAB REF 21:27 | PROVIDERS: ATTEND Physician Assistant Medical | DX: J02.9 Acute pharyngitis, unspecified (principal) ==

== ENCOUNTER → 2017-07-05 | Outpatient (CLI) | payer OTHER | LOC: M RAD 09:34 | DX: M25.562 Pain in left knee (principal) | CPT/HCPCS: 73564 ==

== ENCOUNTER → 2017-07-29 | Outpatient (REF) | payer OTHER | LOC: M LAB REF 13:08 | DX: J11.1 Influenza due to unidentified influenza virus with other respiratory manifestations (principal) | CPT/HCPCS: 87633 ==

== ENCOUNTER → 2017-12-09 | Outpatient (REF) | payer OTHER | LOC: M SFHCPLAZ 11:44 | DX: F41.9 Anxiety disorder, unspecified (principal); E03.9 Hypothyroidism, unspecified; E55.9 Vitamin D deficiency, unspecified ==

== ENCOUNTER 2018-02-15 17:57 | Emergency (ER) | payer OTHER ==
[2018-02-15] MEDS: diphenhydrAMINE INJ 50MG/ML VIAL (J1200) IV (19:09)
[2018-02-15] MEDS: NS 1,000 ML IV (19:09)
[2018-02-15] MEDS: methylPREDNISolone INJ 125 MG/2 ML VIAL (J2930) IV (19:09)
[2018-02-15] MEDS: FAMOTIDINE IV BAG 20 MG in APPROPRIATE DILUENT 1 EA IV (19:15)
[2018-02-15 19:20] LABS: BASO % 0.4 % (0.0-1.0); EOS # 0.1 10^3/uL (0.0-0.50); HEMATOCRIT 41.3 % (36.0-47.0); HEMOGLOBIN 13.7 g/dl (12.0-15.5); IMMATURE GRANULOCYTE % 0.6 % (0-3.0); LYMPH # 2.8 10^3/uL (1.5-6.5); LYMPH % 33.3 % (24.0-44.0); MEAN CORPUSCULAR HEMOGLOBIN 30.3 pg (27.0-33.0); MEAN CORPUSCULAR HGB CONC 33.2 g/dl (32.0-36.5); MEAN CORPUSCULAR VOLUME 91.4 fl (80.0-96.0); MONO # 0.8 10^3/uL (0.0-0.8); MONO % 9.1 % (0.0-5.0); NEUTROPHILS # 4.7 10^3/uL (1.8-7.7); NEUTROPHILS % 55.6 % (36.0-66.0); PLATELET COUNT, AUTOMATED 372 10^3/uL (150-450); RED BLOOD COUNT 4.52 10^6/uL (4.00-5.40); RED CELL DISTRIBUTION WIDTH 12.8 % (11.5-14.5); WHITE BLOOD COUNT 8.4 10^3/uL (4.0-10.0)
[2018-02-15 19:36] LABS: CONTROL LINE HCG INT CTR LINE PRESENT; HCG, SERUM QUALITATIVE NEGATIVE (NEGATIVE)
[2018-02-15 19:41] LABS: ALBUMIN 3.6 GM/DL (3.2-5.2); ALBUMIN/GLOBULIN RATIO 1.16 (1.00-1.93); ALKALINE PHOSPHATASE 41 U/L (45-117); ALT/SGPT 17 U/L (12-78); ANION GAP 8 MEQ/L (8-16); AST/SGOT 11 U/L (7-37); BILIRUBIN,DIRECT 0.2 MG/DL (0.0-0.2); BILIRUBIN,TOTAL 0.7 MG/DL (0.2-1.0); BLOOD UREA NITROGEN 10 MG/DL (7-18); C REACTIVE PROTEIN QUANTITATIV < 0.30 MG/DL (0.00-0.30); CALCIUM LEVEL 8.5 MG/DL (8.5-10.1); CARBON DIOXIDE LEVEL 24 MEQ/L (21-32); CHLORIDE LEVEL 108 MEQ/L (98-107); CREATININE FOR GFR 0.72 MG/DL (0.55-1.30); GLOMERULAR FILTRATION RATE > 60.0 (>60); GLUCOSE, FASTING 85 MG/DL (70-100); POTASSIUM SERUM 3.5 MEQ/L (3.5-5.1); SODIUM LEVEL 140 MEQ/L (136-145); TOTAL PROTEIN 6.7 GM/DL (6.4-8.2)
[2018-02-15 19:42] LABS: ERYTHROCYTE SEDIMENTATION RATE 3 mm/hr (0-20)
== END 2018-02-15 21:03 | disposition home or self-care (01) ==
LOC: M ED 17:57
DX: R21 Rash and other nonspecific skin eruption (principal); T78.40XA Allergy, unspecified, initial encounter; X58.XXXA Exposure to other specified factors, initial encounter; Y92.89 Other specified places as the place of occurrence of the external cause; F41.9 Anxiety disorder, unspecified; F33.9 Major depressive disorder, recurrent, unspecified; Z79.899 Other long term (current) drug therapy; F17.210 Nicotine dependence, cigarettes, uncomplicated
CPT/HCPCS: J1200

== ENCOUNTER → 2019-01-27 | Outpatient (REF) | payer OTHER ==
[~2019-01-27] MED LIST changes: +BENA25CA4 PO; +BUSP5TA; +ESCI20TA; +PRED20TA PO
[2019-01-27 18:06] LABS: ALBUMIN 4.1 GM/DL (3.2-5.2); ALT/SGPT 20 U/L (12-78); BILIRUBIN,TOTAL 0.9 MG/DL (0.2-1.0); BLOOD UREA NITROGEN 8 MG/DL (7-18); CALCIUM LEVEL 9.4 MG/DL (8.5-10.1); CARBON DIOXIDE LEVEL 27 MEQ/L (21-32); CHLORIDE LEVEL 105 MEQ/L (98-107); CREATININE FOR GFR 0.71 MG/DL (0.55-1.30); FREE T4 1.05 NG/DL (0.76-1.46); GLOMERULAR FILTRATION RATE > 60.0 (>60); GLUCOSE, FASTING 78 MG/DL (70-100); POTASSIUM SERUM 3.8 MEQ/L (3.5-5.1); SODIUM LEVEL 140 MEQ/L (136-145); TOTAL 25(OH) VITAMIN D 37.2 NG/ML (30.0-100.0); TOTAL PROTEIN 7.2 GM/DL (6.4-8.2)
== END ==
LOC: M SFHCPLAZ 15:02
PROVIDERS: ATTEND Nurse Practitioner Family
DX: F41.9 Anxiety disorder, unspecified (principal); I83.811 Varicose veins of right lower extremity with pain; E55.9 Vitamin D deficiency, unspecified

== ENCOUNTER → 2019-08-07 | Outpatient (REF) | payer OTHER ==
[2019-08-07 13:14] LABS: CHLAMYDIA DNA AMPLIFICATION NEGATIVE (NEGATIVE); GC DNA AMPLIFICATION NEGATIVE (NEGATIVE)
== END ==
LOC: M WHC 11:16
PROVIDERS: ATTEND Nurse Practitioner Women's Health
DX: Z11.3 Encounter for screening for infections with a predominantly sexual mode of transmission (principal); N89.8 Other specified noninflammatory disorders of vagina

== ENCOUNTER → 2019-08-15 | Outpatient (REF) | payer OTHER | LOC: M SFHCWAGY 17:28 | PROVIDERS: ATTEND Nurse Practitioner Women's Health | DX: R87.615 Unsatisfactory cytologic smear of cervix (principal) ==

== ENCOUNTER → 2020-01-13 | Outpatient (REF) | payer OTHER ==
[2020-02-28 08:24] LABS: MONO SCRN NEGATIVE (NEGATIVE)
== END ==
LOC: M LAB REF 06:39
PROVIDERS: ATTEND Physician Assistant Medical
DX: R53.83 Other fatigue (principal)
CPT/HCPCS: 86308; U0002

== ENCOUNTER 2020-09-24 12:31 | Emergency (ER) | payer OTHER ==
[~2020-09-24] VITALS: Ht 157.5 cm; Wt 68.4 kg
[2020-09-24 12:31] VITALS: BP 129/76
[~2020-09-24 12:31] MED LIST changes: -ESCI20TA; +ESCI20TA16
[2020-09-24] MEDS ORDERED: SPIR-10 (12:39)
[2020-09-24] MEDS ORDERED: CLIN1LOT (12:39)
[2020-09-24] MEDS ORDERED: TRET0.02 (12:39)
[2020-09-24] MEDS ORDERED: ALL10TAB2 PO (12:39)
== END 2020-09-24 13:42 | disposition home or self-care (01) ==
LOC: M ED 12:31
DX: S06.0X0A Concussion without loss of consciousness, initial encounter (principal); W22.8XXA Striking against or struck by other objects, initial encounter; Y92.89 Other specified places as the place of occurrence of the external cause; Y93.9 Activity, unspecified; Y99.0 Civilian activity done for income or pay; J45.998 Other asthma; R51.9 Headache, unspecified; F41.9 Anxiety disorder, unspecified; Z88.8 Allergy status to other drugs, medicaments and biological substances

== ENCOUNTER → 2020-10-01 | Outpatient (CLI) | payer OTHER ==
[~2020-10-01] MED LIST changes: +ALL10TAB2 PO; +CLIN1LOT; +SPIR-10; +TRET0.02
[2020-10-01 16:19] LABS: ALT/SGPT 20 U/L (12-78); BILIRUBIN,TOTAL 0.5 MG/DL (0.2-1.0); BLOOD UREA NITROGEN 11 MG/DL (7-18); CALCIUM LEVEL 9.1 MG/DL (8.5-10.1); CARBON DIOXIDE LEVEL 29 MEQ/L (21-32); CHLORIDE LEVEL 107 MEQ/L (98-107); CREATININE FOR GFR 0.67 MG/DL (0.55-1.30); GLOMERULAR FILTRATION RATE > 60.0 (>60); GLUCOSE, FASTING 80 MG/DL (70-100); POTASSIUM SERUM 3.7 MEQ/L (3.5-5.1); SODIUM LEVEL 141 MEQ/L (136-145); TRIGLYCERIDES LEVEL 99 MG/DL (<150)
[2020-10-01 16:20] LABS: ALBUMIN 3.6 GM/DL (3.2-5.2); CHOLESTEROL LEVEL 160 MG/DL (<200); CHOLESTEROL RISK RATIO 2.191 (<5); FREE T4 0.86 NG/DL (0.76-1.46); HDL CHOLESTEROL 73 MG/DL (>40); LDL CHOLESTEROL 67 MG/DL (<100); NON-HDL-C 87 MG/DL; TOTAL 25(OH) VITAMIN D 27.2 NG/ML (30.0-100.0); TOTAL PROTEIN 6.5 GM/DL (6.4-8.2)
== END ==
LOC: M LAB 15:25
PROVIDERS: ATTEND Nurse Practitioner Family
DX: Z13.220 Encounter for screening for lipoid disorders (principal); E55.9 Vitamin D deficiency, unspecified

== ENCOUNTER → 2021-01-01 | Outpatient (CLI) | payer OTHER ==
--- NOTE | 2021-01-01 08:15 | REP ---
INDICATION: N64.4 LT BREAST MASTODYNIA. Left breast pain x3 months. Whole breast sonography. COMPARISON: None. TECHNIQUE: Whole breast sonography left side. FINDINGS: Left breast sonography demonstrates heterogeneous fibroglandular background echotexture. No cyst, mass, acoustic shadowing or architectural distortion is appreciated. No suspicious ultrasound finding. This patient's estimated Tyrer-Cuzick lifetime risk assessment for breast cancer is 10.8%. IMPRESSION: BI-RADS category 1-findings. Clinical follow-up is advised. <Electronically signed by Landry Chino > 01/01/21 [id number]
== END ==
LOC: M WHC 07:27
PROVIDERS: ATTEND Advanced Practice Midwife
DX: N64.4 Mastodynia (principal)

== ENCOUNTER → 2021-05-21 | Outpatient (REF) | LOC: M LABSMTC 10:55 | PROVIDERS: ATTEND Pediatrics | DX: Z11.52 Encounter for screening for COVID-19 (principal) ==

== ENCOUNTER → 2021-05-21 | Outpatient (REF) | LOC: M EMP 13:56 | PROVIDERS: ATTEND Family Medicine | DX: Z11.52 Encounter for screening for COVID-19 (principal) ==

== ENCOUNTER → 2021-06-18 | Outpatient (REF) ==
[2021-06-18 17:44] LABS: RSV AMPLIFICATION NEGATIVE (NEGATIVE)
== END ==
LOC: M LABSMTC 13:39
PROVIDERS: ATTEND Family Medicine
DX: Z11.52 Encounter for screening for COVID-19 (principal)

== ENCOUNTER → 2021-11-26 | Outpatient (CLI) | payer OTHER ==
[~2021-11-26] MED LIST changes: +AUGM875T28 PO; +FLON1SPR NARES; +SPIR100T3
[2021-11-26 17:05] LABS: BASO % 0.5 % (0.0-1.0); EOS # 0.1 10^3/uL (0.0-0.5); EOS % 1.4 % (0.0-3.0); HEMATOCRIT 39.9 % (36.0-47.0); HEMOGLOBIN 13.1 g/dl (12.0-15.5); LYMPH % 24.6 % (24.0-44.0); MEAN CORPUSCULAR HEMOGLOBIN 30.5 pg (27.0-33.0); MEAN CORPUSCULAR HGB CONC 32.8 g/dl (32.0-36.5); MONO # 0.5 10^3/uL (0.0-0.8); MONO % 6.4 % (2.0-8.0); NEUTROPHILS # 5.3 10^3/uL (1.5-8.5); NEUTROPHILS % 66.5 % (36.0-66.0); PLATELET COUNT, AUTOMATED 278 10^3/uL (150-450); RED BLOOD COUNT 4.29 10^6/uL (4.00-5.40)
[2021-11-26 17:48] LABS: ALBUMIN 3.5 GM/DL (3.2-5.2); ALT/SGPT 16 U/L (12-78); BILIRUBIN,TOTAL 0.4 MG/DL (0.2-1.0); BLOOD UREA NITROGEN 23 MG/DL (7-18); CALCIUM LEVEL 8.6 MG/DL (8.5-10.1); CARBON DIOXIDE LEVEL 27 MEQ/L (21-32); CHLORIDE LEVEL 104 MEQ/L (98-107); CREATININE FOR GFR 0.68 MG/DL (0.55-1.30); FREE T4 0.81 NG/DL (0.76-1.46); GLOMERULAR FILTRATION RATE > 60.0 (>60); GLUCOSE, FASTING 75 MG/DL (70-100); SODIUM LEVEL 137 MEQ/L (136-145); TOTAL PROTEIN 6.7 GM/DL (6.4-8.2)
== END ==
LOC: M LAB 16:26
PROVIDERS: ATTEND Physician Assistant
DX: E55.9 Vitamin D deficiency, unspecified (principal)

== ENCOUNTER → 2022-04-28 | Outpatient (CLI) | payer OTHER | LOC: M WHC 15:46 | PROVIDERS: ATTEND Nurse Practitioner Family | DX: N88.8 Other specified noninflammatory disorders of cervix uteri (principal); Z97.5 Presence of (intrauterine) contraceptive device ==

== ENCOUNTER → 2022-05-17 | Outpatient (CLI) | payer OTHER | LOC: M RAD 12:59 | PROVIDERS: ATTEND Physician Assistant | DX: S82.51XA Displaced fracture of medial malleolus of right tibia, initial encounter for closed fracture (principal); W18.30XA Fall on same level, unspecified, initial encounter; Y92.009 Unspecified place in unspecified non-institutional (private) residence as the place of occurrence of the external cause ==

== ENCOUNTER → 2022-05-18 | Outpatient (CLI) | payer OTHER | LOC: M SOG 11:50 | PROVIDERS: ATTEND Orthopaedic Surgery Adult Reconstructive Orthopaedic Surgery | DX: S82.832A Other fracture of upper and lower end of left fibula, initial encounter for closed fracture (principal); W18.30XA Fall on same level, unspecified, initial encounter; Y92.009 Unspecified place in unspecified non-institutional (private) residence as the place of occurrence of the external cause ==

== ENCOUNTER → 2022-05-25 | Outpatient (CLI) | payer OTHER | LOC: M SOG 07:55 | PROVIDERS: ATTEND Orthopaedic Surgery Adult Reconstructive Orthopaedic Surgery | DX: S82.831A Other fracture of upper and lower end of right fibula, initial encounter for closed fracture (principal); X58.XXXA Exposure to other specified factors, initial encounter; Y92.9 Unspecified place or not applicable; Y93.9 Activity, unspecified; Y99.9 Unspecified external cause status ==

== ENCOUNTER → 2022-05-28 | Outpatient (REF) | payer OTHER ==
[2022-05-28 14:33] LABS: APPEARANCE, URINE MANUAL HAZY (CLEAR); COLOR, URINE MANUAL YELLOW (YELLOW)
[2022-05-28 14:36] LABS: BILIRUBIN, URINE MANUAL NEGATIVE (NEGATIVE); BLOOD URINE MANUAL TRACE (NEGATIVE); GLUCOSE, URINE (UA) MANUAL NEGATIVE (NEGATIVE); KETONE, URINE MANUAL NEGATIVE (NEGATIVE); LEUKOCYTE ESTERASE, URINE MAN POSITIVE (NEGATIVE); NITRITE, URINE MANUAL NEGATIVE (NEGATIVE); PROTEIN, URINE MANUAL NEGATIVE (NEGATIVE); UROBILINOGEN, URINE MANUAL NORMAL (NORMAL)
[2022-05-28 15:01] LABS: BACTERIA, URINE LARGE AMOUNT; HYALINE CAST, URINE NONE SEEN /lpf (0-1); SQUAMOUS EPITHELIAL CELL URINE LARGE AMOUNT /hpf (SMALL AMT); WBC, URINE TNTC /hpf (0-3)
== END ==
LOC: M LAB REF 12:18
PROVIDERS: ATTEND Physician Assistant
DX: N39.0 Urinary tract infection, site not specified (principal)

== ENCOUNTER → 2022-06-01 | Outpatient (CLI) | payer OTHER | LOC: M SOG 09:24 | PROVIDERS: ATTEND Orthopaedic Surgery Adult Reconstructive Orthopaedic Surgery | DX: S82.831D Other fracture of upper and lower end of right fibula, subsequent encounter for closed fracture with routine healing (principal); W18.30XD Fall on same level, unspecified, subsequent encounter ==

== ENCOUNTER → 2022-06-29 | Outpatient (CLI) | payer OTHER | LOC: M SOG 08:11 | PROVIDERS: ATTEND Orthopaedic Surgery Adult Reconstructive Orthopaedic Surgery | DX: S82.831D Other fracture of upper and lower end of right fibula, subsequent encounter for closed fracture with routine healing (principal) ==

== ENCOUNTER → 2022-08-07 | Outpatient (CLI) | payer OTHER | LOC: M SOG 09:12 | PROVIDERS: ATTEND Orthopaedic Surgery Adult Reconstructive Orthopaedic Surgery | DX: S82.831D Other fracture of upper and lower end of right fibula, subsequent encounter for closed fracture with routine healing (principal); W18.30XD Fall on same level, unspecified, subsequent encounter; Y92.009 Unspecified place in unspecified non-institutional (private) residence as the place of occurrence of the external cause ==

== ENCOUNTER → 2022-10-28 | Outpatient (REF) | payer OTHER | LOC: M PLALAB 14:58 | PROVIDERS: ATTEND Nurse Practitioner Family | DX: Z12.4 Encounter for screening for malignant neoplasm of cervix (principal) ==

== ENCOUNTER 2023-02-01 13:54 | Emergency (ER) | payer OTHER, SELFPAY ==
[~2023-02-01] VITALS: Ht 157.5 cm; Wt 81.8 kg
[2023-02-01 13:55] VITALS: BP 123/82; TEMP 98.4; O2SAT 100
== END 2023-02-01 19:00 | disposition left against medical advice (07) ==
LOC: M ED 13:54
DX: R07.9 Chest pain, unspecified (principal); Z53.21 Procedure and treatment not carried out due to patient leaving prior to being seen by health care provider

== ENCOUNTER → 2023-02-02 | Outpatient (REF) | payer OTHER ==
[2023-02-02 18:12] LABS: BASO % 0.6 % (0.0-1.0); EOS # 0.1 10^3/uL (0.0-0.5); EOS % 0.9 % (0.0-3.0); HEMATOCRIT 44.1 % (36.0-47.0); HEMOGLOBIN 14.5 g/dl (12.0-15.5); LYMPH # 1.5 10^3/uL (1.5-5.0); LYMPH % 23.7 % (24.0-44.0); MEAN CORPUSCULAR HEMOGLOBIN 30.7 pg (27.0-33.0); MEAN CORPUSCULAR HGB CONC 32.9 g/dl (32.0-36.5); MEAN CORPUSCULAR VOLUME 93.4 fl (80.0-96.0); MONO # 0.4 10^3/uL (0.0-0.8); MONO % 6.7 % (2.0-8.0); NEUTROPHILS # 4.4 10^3/uL (1.5-8.5); NEUTROPHILS % 67.6 % (36.0-66.0); PLATELET COUNT, AUTOMATED 329 10^3/uL (150-450); RED BLOOD COUNT 4.72 10^6/uL (4.00-5.40); WHITE BLOOD COUNT 6.5 10^3/uL (4.0-10.0)
[2023-02-02 18:48] LABS: ALBUMIN 4.1 G/DL (3.2-5.2); ALKALINE PHOSPHATASE 44 U/L (46-116); ALT/SGPT 42 U/L (7.0-40); AST/SGOT 19 U/L (<34); BILIRUBIN,TOTAL 0.8 MG/DL (0.3-1.2); BLOOD UREA NITROGEN 13 MG/DL (9-23); CALCIUM LEVEL 9.4 MG/DL (8.5-10.1); CARBON DIOXIDE LEVEL 29 MMOL/L (20-31); CHLORIDE LEVEL 101 MMOL/L (98-107); CHOLESTEROL LEVEL 210 MG/DL (<200); CHOLESTEROL RISK RATIO 2.67 (<5); CREATININE FOR GFR 0.71 MG/DL (0.55-1.30); FREE T4 1.02 NG/DL (0.89-1.76); GLOMERULAR FILTRATION RATE > 60.0 (>60); GLUCOSE, FASTING 86 MG/DL (60-100); HDL CHOLESTEROL 78.5 MG/DL (>40); LDL CHOLESTEROL 117.5 MG/DL (<100); NON-HDL-C 131.5 MG/DL; POTASSIUM SERUM 4.6 MMOL/L (3.5-5.1); SODIUM LEVEL 137 MMOL/L (136-145); THYROID STIMULATING HORMONE 4.508 uIU/ML (0.55-4.78); TRIGLYCERIDES LEVEL 70 MG/DL (<150)
== END ==
LOC: M SFHCCLAY 12:26
PROVIDERS: ATTEND Physician Assistant Medical
DX: E03.9 Hypothyroidism, unspecified (principal); R07.9 Chest pain, unspecified

== ENCOUNTER → 2023-02-02 | Outpatient (CLI) | payer OTHER | LOC: M CLY 12:50 | PROVIDERS: ATTEND Physician Assistant Medical | DX: R07.9 Chest pain, unspecified (principal) ==

== ENCOUNTER → 2024-05-02 | Outpatient (CLI) | payer BC, OTHER | LOC: M WHC 14:51 | PROVIDERS: ATTEND Nurse Practitioner Family | DX: N64.4 Mastodynia (principal); N63.21 Unspecified lump in the left breast, upper outer quadrant; R92.333 Mammographic heterogeneous density, bilateral breasts ==

== ENCOUNTER → 2024-06-13 | Outpatient (REF) | LOC: M EMP 08:56 | PROVIDERS: ATTEND Family Medicine | DX: Z01.89 Encounter for other specified special examinations (principal) ==

== ENCOUNTER → 2024-07-06 | Outpatient (REF) | payer BC | LOC: M LAB REF 20:40 | PROVIDERS: ATTEND Physician Assistant Medical | DX: J02.9 Acute pharyngitis, unspecified (principal) ==

== ENCOUNTER → 2024-09-04 | Outpatient (REF) | payer BC ==
[2024-09-06 14:47] LABS: HPV APTIMA Not Detected (Not Detected)
== END ==
LOC: M SFHCWAGY 12:47
PROVIDERS: ATTEND Nurse Practitioner Family
DX: Z12.4 Encounter for screening for malignant neoplasm of cervix (principal)
CPT/HCPCS: 87624; G0123

== ENCOUNTER → 2024-10-29 | Outpatient (REF) | payer BC ==
[~2024-10-29] MED LIST changes: -TRET0.02; +TRET0.046
[2024-10-29 17:44] LABS: APPEARANCE, URINE HAZY (CLEAR); BACTERIA, URINE AUTO 1+ (NEGATIVE); BILIRUBIN, URINE AUTO NEGATIVE (NEGATIVE); BLOOD, URINE BLOOD 3+ (NEGATIVE); COLOR, URINE AMBER (YELLOW); GLUCOSE, URINE (UA) AUTO NEGATIVE (NEGATIVE); KETONE, URINE AUTO NEGATIVE (NEGATIVE); LEUKOCYTE ESTERASE, URINE AUTO 3+ (NEGATIVE); NITRITE, URINE AUTO NEGATIVE (NEGATIVE); PROTEIN, URINE AUTO NEGATIVE (NEGATIVE); RBC, URINE AUTO 8 /HPF (0-3); SPECIFIC GRAVITY URINE AUTO 1.001 (1.002-1.035); SQUAMOUS EPITHELIAL CELL UR AU 2 /HPF (0-6); UROBILINOGEN, URINE AUTO 0.2 mg/dL (0.0-2.0); WBC, URINE AUTO 27 /HPF (0-3)
== END ==
LOC: M LAB REF 17:24
PROVIDERS: ATTEND Physician Assistant
DX: N39.0 Urinary tract infection, site not specified (principal)

== ENCOUNTER → 2024-11-02 | Outpatient (CLI) | payer BC | LOC: M WHC 09:10 | PROVIDERS: ATTEND Nurse Practitioner Family | DX: R92.8 Other abnormal and inconclusive findings on diagnostic imaging of breast (principal); R92.333 Mammographic heterogeneous density, bilateral breasts | CPT/HCPCS: 76642; 77065; G0279 ==

== ENCOUNTER → 2024-12-25 | Outpatient (REF) | payer BC ==
[2024-12-25 21:32] LABS: APPEARANCE, URINE CLEAR (CLEAR); BACTERIA, URINE AUTO NEGATIVE (NEGATIVE); BILIRUBIN, URINE AUTO NEGATIVE (NEGATIVE); BLOOD, URINE BLOOD NEGATIVE (NEGATIVE); GLUCOSE, URINE (UA) AUTO NEGATIVE (NEGATIVE); KETONE, URINE AUTO NEGATIVE (NEGATIVE); LEUKOCYTE ESTERASE, URINE AUTO NEGATIVE (NEGATIVE); NITRITE, URINE AUTO NEGATIVE (NEGATIVE); PROTEIN, URINE AUTO NEGATIVE (NEGATIVE); RBC, URINE AUTO 0 /HPF (0-3); SPECIFIC GRAVITY URINE AUTO 1.005 (1.002-1.035); SQUAMOUS EPITHELIAL CELL UR AU 0 /HPF (0-6); UROBILINOGEN, URINE AUTO 0.2 mg/dL (0.0-2.0); WBC, URINE AUTO 1 /HPF (0-3)
== END ==
LOC: M LAB REF 21:18
PROVIDERS: ATTEND Physician Assistant Medical
DX: N39.0 Urinary tract infection, site not specified (principal)

== ENCOUNTER → 2024-12-26 | Outpatient (CLI) | payer BC ==
[~2024-12-26] MED LIST changes: +PROHANCE 279.3MG/ML 15ML VIAL ONE
== END ==
LOC: M PLAIMG 14:08
PROVIDERS: ATTEND Nurse Practitioner Family
DX: R92.8 Other abnormal and inconclusive findings on diagnostic imaging of breast (principal)
CPT/HCPCS: A9576; C8908